=== PATIENT | female | born 1960 | race Caucasian/White ===

== ENCOUNTER 2017-01-25 18:54 | Emergency (ER) | payer BC ==
[2017-01-25] MEDS ORDERED: Morphine INJ* 4 MG/ML 1 ML SYRINGE IV ONE (19:40)
[2017-01-25] MEDS ORDERED: Ondansetron INJ* 2 MG/ML VIAL IV ONE (19:40)
[2017-01-25] MEDS ORDERED: NS 0.9% 1000 ML* 1,000 ML IV ONE (19:40)
--- NOTE | 2017-01-25 20:15 | RAD ---
INDICATION: Right ankle pain COMPARISON: None TECHNIQUE: AP, lateral, and oblique views were obtained. FINDINGS: The bony structures, joint spaces, and soft tissues are normal for age. IMPRESSION: NEGATIVE EXAMINATION.
--- NOTE | 2017-01-25 20:16 | RAD ---
INDICATION: Right shoulder injury COMPARISON: None TECHNIQUE: Routine frontal and Y views were obtained. FINDINGS: There is a comminuted fracture of the proximal humeral head and neck with multiple mildly displaced fracture fragments. There is no dislocation. The AC joint is intact. No rib fracture is seen. Visualized right lung is clear. IMPRESSION: COMMINUTED FRACTURE OF THE PROXIMAL HUMERAL HEAD AND NECK
[2017-01-25] MEDS ORDERED: traMADol TAB* 50 MG PO ONE ×2 (20:42→21:38)
[2017-01-25] MEDS ORDERED: traMADol TAB* 50 MG ONE (21:26)
[2017-01-26 05:13] VITALS: BP 168/84
--- NOTE | 2017-01-26 21:18 | ED ---
Julien Ferrer Billy, scribed for Eduardo Jenkins MD on 01/25/17 at 1939 . Upper Extremity Pain - HPI Summary HPI Summary: Patient is a 56 year-old female coming to [facility] for evaluation of right shoulder pain after a simple mechanical fall at 1530 today. She says she missed a step as she was exiting a restaurant in [place] and fell on her outstretched hands. There is pain with any attempted movement of the right shoulder, but she has limited ROM. She also complains of right ankle pain and a left knee abrasion. She denies any head trauma or LOC. Denies any numbness or tingling. - History of Current Complaint Chief Complaint: EDExtremityUpper Stated Complaint: FALL-SHOULDER/ANKLE INJURIES Time Seen by Provider: 01/25/17 19:21 Hx Obtained From: Patient Mechanism Of Injury: Fall From A Standing Position Onset/Duration: Started Hours Ago Timing: Constant Severity Initially: Moderate Severity Currently: Moderate Pain Location: Shoulder Aggravating Factor(s): Movement Alleviating Factor(s): Nothing Associated Signs & Symptoms: Positive: Negative PMH/Surg Hx/FS Hx/Imm Hx Endocrine/Hematology History: Denies: Hx Diabetes Respiratory History: Reports: Hx Asthma Infectious Disease History: Denies: Traveled Outside the [place] in Last 30 Days - Family History Known Family History: Negative: Blood Disorder - Social History Alcohol Use: Occasionally Hx Substance Use: No Substance Use Type: Reports: None Hx Tobacco Use: No Smoking Status (MU): Never Smoked Tobacco Review of Systems Negative: Fever, Chills Negative: Erythema Negative: Sore Throat Negative: Chest Pain Negative: Shortness Of Breath, Cough Negative: Abdominal Pain, Vomiting, Nausea Positive: Arthralgia - right shoulder, right ankle Positive: Other - abrasion left knee. 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 No stridor; No JVD; No step off; No posterior cervical spine tenderness Cardio: Rhythm regular, rate normal Heart sounds normal; Intact distal pulses; The pedal pulses are 2+ and symmetric. Radial pulses are 2+ and symmetric. Pulmonary/Chest wall: Effort normal; Breath sounds normal; Equal chest rise; No flail segment; No rib tenderness; No sternal tenderness Abd: Soft, Appearance normal. No distension; No tenderness; No palpable pulsatile mass; No Cullens sign; No Ruiz-Turners sign Musculoskeletal: Full ROM and no tenderness at hips, ankles, shoulders, elbows and knees; No joint swelling; No vertebral body tenderness; No paraspinal tenderness; No step off or deformity of the spine; Pelvis is stable to lateral compression and rock Neuro: Alert, Oriented x3, Strength 5/5 all extremities. : No blood at urethral meatus Psych: Mood and affect Normal Triage Information Reviewed: Yes Vital Signs On Initial Exam: Initial Vitals Temp Pulse Resp BP Pulse Ox 97.7 F 70 17 140/88 100 01/25/17 18:57 01/25/17 18:57 01/25/17 18:57 01/25/17 18:57 01/25/17 18:57 Vital Signs Reviewed: Yes Diagnostics - Vital Signs Vital Signs Temp Pulse Resp BP Pulse Ox 01/25/17 18:57 97.7 F 70 17 140/88 100 - Laboratory Lab Statement: Any lab studies that have been ordered have been reviewed, and results considered in the medical decision making process. - Radiology Shoulder x-ray Radiology Interpretation Completed By: Radiologist - COMMINUTED FRACTURE OF THE PROXIMAL HUMERAL HEAD AND NECK Ankle x-ray Xray Interpretation: No Acute Changes Radiology Interpretation Completed By: Radiologist Re-Evaluation - Re-Evaluation First Eval Re-Evaluation Time: 20:28 Comment: Imaging discussed. Patient developed symptoms of ulnar nerve compression, developing tingling and numbness to the posterior aspect of the right arm extending to the pinky finger Course/Dx - Course Assessment/Plan: This is a 56 year-old female coming to [facility] for evaluation of right shoulder and ankle pain after a fall earlier today. X-ray of the shoulder shows a comminuted fracture of the proximal humeral head and neck. X-ray of the ankle shows no acute findings. The patient was given morphine, zofran, and IV fluids in the ED. Upon re-evaluation, the patient actually developed symptoms of ulnar nerve compression, developing tingling and numbness to the posterior aspect of the right arm extending to the pinky finger. She will not be able to tolerate crutches or walker for the ankle injury due to the humeral fracture, so she will utilize a wheelchair for a few days until the ankle clears. She will be discharged home to follow up with orthopedics. - Diagnoses Provider Diagnoses: Ankle pain, humeral head and neck fracture, Paresthesia - Physician Notifications Discussed Care Of Patient With: Dr. Alfaro (orthopedics) @ 2049: as long as there is no dislocation, there is no need for emergent manipulation, will follow up tomorrow morning in the office. Discharge - Discharge Plan Condition: Stable Disposition: HOME Patient Education Materials: Arm Fracture in Adults (ED) Referrals: Mesha Simmons MD [Primary Care Provider] - Augusto Alfaro MD [Medical Doctor] - Additional Instructions: DO NOT BEAR WEIGHT ON YOUR RIGHT ANKLE UNTIL CLEARED TO DO SO. FOLLOW UP WITH DR. ALFARO (ORTHOPEDICS) TOMORROW MORNING. The documentation as recorded by the Julien evans Billy accurately reflects the service I personally performed and the decisions made by , Eduardo Jenkins MD.
== END 2017-01-25 21:40 | disposition home or self-care (01) ==
LOC: ED 18:54
DX: S42.291A Other displaced fracture of upper end of right humerus, initial encounter for closed fracture (principal); W10.9XXA Fall (on) (from) unspecified stairs and steps, initial encounter; Y92.511 Restaurant or cafe as the place of occurrence of the external cause; M25.571 Pain in right ankle and joints of right foot; R20.9 Unspecified disturbances of skin sensation
CPT/HCPCS: 99283; A9270-GY; J2270; J2405

== ENCOUNTER 2017-12-19 08:05 | Emergency (ER) | payer BC ==
[2017-12-19 08:55] VITALS: BP 171/103
[2017-12-19] MEDS ORDERED: Ibuprofen TAB* 600 MG PO ONE (09:40)
--- NOTE | 2017-12-19 09:47 | UC ---
Elbow Pain - HPI Summary HPI Summary: Fall last night indoors directly onto R elbow. Immediate pain, unable to extend elbow, visible swelling in joint. Had R proximal humerus fx about a year ago from a fall, saw Dr. Baeza. Works in office work, R hand dominant. - History of Current Complaint Chief Complaint: UCUpperExtremity Stated Complaint: ELBOW PAIN Time Seen by Provider: 12/19/17 09:29 Hx Obtained From: Patient ?: No Onset/Duration: Hours, Traumatic Severity Initially: Moderate Severity Currently: Moderate Pain Intensity: 8 Location Of Pain: Is Discrete @ Character: Dull, Aching, Stiffness Aggravating Factor(s): Movement Alleviating Factor(s): Rest, Immobilization, OTC Meds Associated Signs And Symptoms: Positive: Swelling - Allergies/Home Medications Allergies/Adverse Reactions: Allergies Allergy/AdvReac Type Severity Reaction Status Date / Time cefprozil [From Cefzil] Allergy Intermediate Hives Verified 12/19/17 08:46 Home Medications: Home Medications Budesonide [Entocort EC] 3 mg PO DAILY 12/19/17 [History Confirmed 12/19/17] Lisinopril 10 mg PO DAILY 12/19/17 [History Confirmed 12/19/17] PMH/Surg Hx/FS Hx/Imm Hx Cardiovascular History: Hypertension - Surgical History Surgical History: Yes Surgery Procedure, Year, and Place: oral surgery. right wrist surgery - Family History Known Family History: Positive: Hypertension Negative: Blood Disorder - Social History Occupation: Employed Full-time Alcohol Use: Occasionally Substance Use Type: None Smoking Status (MU): Never Smoked Tobacco Review of Systems Constitutional: Negative Skin: Negative Eyes: Negative ENT: Negative Respiratory: Negative Cardiovascular: Negative Gastrointestinal: Negative Genitourinary: Negative Motor: Negative Neurovascular: Negative Musculoskeletal: Arthralgia, Decreased ROM Neurological: Negative Psychological: Negative Is Patient Immunocompromised?: No All Other Systems Reviewed And Are Negative: Yes Physical Exam Triage Information Reviewed: Yes Appearance: Well-Appearing, Well-Nourished, Pain Distress - with R arm movement Vital Signs: Initial Vital Signs Temp 99.2 F 12/19/17 08:48 Pulse 81 12/19/17 08:48 Resp 16 12/19/17 08:48 BP 171/103 12/19/17 08:48 Pulse Ox 100 12/19/17 08:48 Vital Signs Reviewed: Yes Eye Exam: Normal Eyes: Positive: Conjunctiva Clear ENT Exam: Normal ENT: Positive: Normal ENT inspection, Hearing grossly normal Dental Exam: Normal Neck exam: Normal Neck: Positive: Supple, Nontender Respiratory Exam: Normal Respiratory: Positive: Chest non-tender, Lungs clear, Normal breath sounds, No respiratory distress, No accessory muscle use Cardiovascular Exam: Normal Cardiovascular: Positive: RRR, No Murmur Musculoskeletal: Positive: ROM Limited @ - R elbow in fixed position, painful to extend. Visible joint effusion Neurological Exam: Normal Neurological: Positive: Alert Psychological Exam: Normal Skin Exam: Normal Skin: Positive: rashes Diagnostics - Radiology No standard instances Xray Interpretation: Positive (See Comments) - Lateral r condylar fracture Radiology Interpretation Completed By: Radiologist Elbow Pain Course/Dx - Differential Dx/Diagnosis Provider Diagnoses: R elbow fracture lateral condyle, closed, mildly displaced. Elevated blood pressure due to pain Discharge - Discharge Plan Condition: Stable Disposition: HOME Patient Education Materials: Elbow Fracture (ED) Referrals: Mesha Simmons MD [Primary Care Provider] - Ray Baeza MD [Medical Doctor] - 4 Days Additional Instructions: Keep the arm rested and in a sling all the time until you see the orthopedist. Please discuss your fractures with Dr. Simmons at your next physical, as you may benefit from treatment for osteoporosis.
--- NOTE | 2017-12-19 10:06 | RAD ---
INDICATION: Right elbow injury COMPARISON: None TECHNIQUE: AP, lateral, and oblique views were obtained. FINDINGS: There is a mildly distracted fracture from the lateral upper condyle. There are no other fractures. The elbow articulates normally. There is a large joint effusion with displacement of anterior posterior fat pads. IMPRESSION: LATERAL EPICONDYLE FRACTURE WITH HEMARTHROSIS
== END 2017-12-19 10:45 | disposition home or self-care (01) ==
LOC: UCEAST 08:05
DX: S42.431A Displaced fracture (avulsion) of lateral epicondyle of right humerus, initial encounter for closed fracture (principal); W19.XXXA Unspecified fall, initial encounter; Y93.9 Activity, unspecified; Y92.9 Unspecified place or not applicable; I10 Essential (primary) hypertension; Z88.1 Allergy status to other antibiotic agents
CPT/HCPCS: 99213; A9270-GY; G0463

== ENCOUNTER 2017-12-27 10:42 | Day surgery (SDC) | payer BC ==
--- NOTE | 2017-12-26 13:56 | HP ---
PREOPERATIVE HISTORY AND PHYSICAL: DATE OF SURGERY/ADMISSION: 12/27/17 [facility] ATTENDING SURGEON: Danielle Alejandro MD * (DICTATED BY LUIS LOZANO) PROCEDURE: Open reduction internal fixation, right distal humerus. CHIEF COMPLAINT: Right elbow pain after fall. HISTORY OF PRESENT ILLNESS: This is a 57-year-old female who sustained injury to her right elbow on 12/18/17 when she tripped over her dog in the dark in the middle of the night. She was initially seen at [facility] and x-rays showed a comminuted intraarticular fracture of the distal humerus with a mild amount of displacement. Subsequent CT scan showed a markedly comminuted and displaced fracture of the capitellum and a small portion of the trochlea. The patient denies any associated numbness or tingling. After evaluation by Dr. Alejandro and review of imaging studies, the patient has consented to proceed with surgical intervention at this time in the form of an open reduction internal fixation of the right distal humerus. PAST MEDICAL HISTORY: 1. Hypertension. 2. History of asthma. 3. Microscopic colitis. 4. Celiac disease. 5. Allergies to DUST, POLLEN and other ENVIRONMENTAL AGENTS. PAST SURGICAL HISTORY: 1. [place] teeth extraction. 2. Wrist surgery as a child. CURRENT MEDICATIONS: 1. Budesonide 3 mg 3 times daily. 2. Lisinopril 10 mg daily. 3. Naproxen 500 mg b.i.d. p.r.n. pain. 4. Vitamin D3 daily. ALLERGIES: CEFZIL causes hives. FAMILY MEDICAL HISTORY: Diabetes, heart disease, hypertension, cancer and arthritis. 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 She denies tobacco use and illicit drug use. She does drink alcohol on regular occasion, approximately 2 glasses of wine per night. REVIEW OF SYSTEMS: General: Negative for fevers, chills, or night sweats. No known anesthesia problems. HEENT: Negative for headache, lightheadedness, or syncopal episodes. Integumentary: Negative for abrasions, lesions, or open wounds. Cardiothoracic: Negative for hypertension, chest pain, palpitations, or edema. Pulmonary: Negative for shortness of breath with exertion, chronic cough, COPD. GI: Negative for nausea, vomiting, diarrhea, constipation or GERD. : Negative for nocturia, urinary frequency, urgency, history of UTIs, or kidney problems. Musculoskeletal: Positive for current complaint. Neurological: Negative for paresthesias, numbness, history of seizure, stroke, or epilepsy. Endocrine: Negative for diabetes and thyroid issues. Hematologic : Negative for easy bruising, anemia, excessive bleeding, or history of DVT. Infectious Disease: Negative for history of MRSA, hepatitis C, HIV. PHYSICAL EXAMINATION GENERAL: Well-developed, well-nourished 57-year-old female in no acute distress. VITAL SIGNS: Height 5 feet 9 inches, weight 160 pounds. Pulse rate 65, blood pressure 134/82. HEENT: Normocephalic, atraumatic. Pupils are equal, round, and reactive to light and accommodation. Extraocular movements are intact. NECK: Supple. No palpable lymph nodes. Throat is clear. PULMONARY: Lungs are clear to auscultation bilaterally. No wheezes, rales, or rhonchi. CARDIOVASCULAR: Regular rate and rhythm. S1 and S2. No murmurs, rubs, or gallops. No edema. ABDOMEN: Positive bowel sounds. Soft, nontender. NEUROLOGIC: Alert and oriented x3. Cranial nerves II through XII are intact. Sensation is intact to light touch. PERIPHERAL VASCULAR: 2+ radial and ulnar pulses. MUSCULOSKELETAL: On exam of her right elbow, there is significant swelling around the elbow. She has mildly limited range of motion at the elbow in flexion and extension, but she has full pronation and supination. Neurovascular function is intact. SKIN: Intact. IMAGING STUDIES: X-rays: AP, lateral and oblique of the right elbow show a comminuted intraarticular fracture of the distal humerus and a CT scan shows a markedly comminuted and displaced fracture of the capitellum and a small portion of the trochlea. IMPRESSION: Right elbow capitellum and trochlea fracture. PLAN: The patient is scheduled to undergo an open reduction internal fixation of the right distal humerus with Dr. Alejandro on 12/27/17. She will return to the office 10 to 14 days postop for followup and suture removal. A prescription for [place] was e-scribed to the patient's pharmacy for postoperative pain management. LUIS LOZANO [id number]/[facility] #: [id number] [facility] SERVICES[facility]
[~2017-12-27 10:42] MED LIST: Buffered Lidocaine 0.9% SYRIN* 5 ML/SYR SYRINGE INTRADERM ONE; DiMENhydriNATE IV* 50 MG/ML VIAL IV PUSH PRN; Famotidine IV* 10 MG/ML 2 ML (20 mg) IV ONE; Morphine INJ* 2 MG/ML 1 ML CARPUJECT IV PRN; Naloxone* 0.4 MG/ML 1 ML VIAL IV PRN; PROCHLORPERAZINE INJ 5 MG/ML 2 ML VIAL IV PRN; Scopolamine 1.5 mg* PATCH TRANSDERM PRN; fentaNYL* 50 MCG/ML 2 ML VIAL (100 MCG VIAL) IV PRN; oxyCODONE/Acetamin 5/325 MG* TAB PO PRN
[2017-12-27] MEDS ORDERED: ceFAZolin 2 GM in 100 MLS NS (*) BAG IVPB ONE (10:55)
[2017-12-27] MEDS ORDERED: Famotidine IV* 10 MG/ML 2 ML (20 mg) ONE (10:55)
[2017-12-27] MEDS ORDERED: fentaNYL* 50 MCG/ML 2 ML VIAL (100 MCG VIAL) ONE ×2 (11:48→13:58)
[2017-12-27] MEDS ORDERED: Midazolam* 1 MG/ML 5 ML VIAL (5 MG) ONE (11:48)
[2017-12-27] MEDS ORDERED: Bupivacaine 0.25% SDV* 30 ML ONE (12:12)
[2017-12-27] MEDS ORDERED: Clindamycin 900 MG IVPREMIX(* 900 MG/50 ML SDV IV ONE (12:22)
[2017-12-27] MEDS ORDERED: Dexamethasone IV* 4 MG/ML 1 ML (4 MG) ONE (13:06)
[2017-12-27] MEDS ORDERED: Lidocaine 2% PF * 5 ML VIAL ONE (13:06)
[2017-12-27] MEDS ORDERED: Propofol* 10 MG/ML 20 ML BTL IV PUSH ONE (13:06)
[2017-12-27] MEDS ORDERED: Ketorolac INJ* 30 MG/ML 1 ML VIAL ONE (13:06)
[2017-12-27] MEDS ORDERED: Ondansetron INJ* 2 MG/ML VIAL ONE (13:06)
[2017-12-27 15:01] VITALS: BP 145/87
--- NOTE | 2017-12-28 12:29 | OP ---
DATE OF OPERATION: 12/27/17 [facility] DATE OF : 56 SURGEON: Dr. Alejandro. FORTUNE COOKIE MAKER: LUIS Kee ANESTHESIA: General plus block. PRE-OP DIAGNOSIS: Distal humerus fracture on the right. POST-OP DIAGNOSIS: Distal humerus fracture on the right. OPERATIVE PROCEDURE: Open reduction and internal fixation of the right distal humerus. ESTIMATED BLOOD LOSS: Less than 10 mL. INDICATION FOR PROCEDURE: Penny is a 57-year-old woman who tripped over her dog in the night and injured her right elbow. On CT scan, she has a markedly displaced and comminuted fracture of the distal humerus. She presents for ORIF of the right distal humerus. DESCRIPTION OF PROCEDURE: The patient was brought to the operating room, was given a block anesthetic and a general anesthetic. She was placed in a supine position on the operating table with a tourniquet around her right upper arm. Skin of her right upper extremity was prepped and draped in the usual sterile fashion. The upper extremity was exsanguinated and the tourniquet elevated to 250 mmHg. A lateral longitudinal incision was made at center of the lateral epicondyle and we dissected sharply through the subcutaneous tissue and in the interval between the anconeus and ECRB a longitudinal incision was made. The elbow joint capsule was then incised and the hematoma was suctioned. The fracture fragments which had been split and impacted were teased apart and reduced and the radial head was brought down into reduction by traction. There was a small, very thin chondral fragment posterior and this was removed. There was a small lateral fragment as well and then a large anterior fragment, which was the majority of the capitellum. There was also an impacted trochlear fragment and it was decided to just leave this in place as it was not hindering the range of motion at all. With the capitellum fragment reduced, I was able to gain full flexion and extension and rotation of the forearm. The capitellar fragment was secured with 3 Acutrak screws through the articular surface and an additional small fragment lag screw on the anterior cortical portion of the fragment. The thin lateral fragment was secured with a single small fragment screw using a washer. The position of all of the hardware and fracture fragments was checked on the C-arm in the AP and lateral views and found to be very satisfactory. There was no motion at the fracture site with range of motion of the elbow. The wound was copiously irrigated with saline. The elbow joint capsule was closed with 0 Vicryl suture, the fascia closed with 0 Vicryl, subcutaneous tissue closed with 2-0 Vicryl, and the skin with skin mendoza. The wound was dressed with Xeroform, 4x4, Webril, and a posterior splint. The patient tolerated the procedure well and was brought to the recovery room in good condition. [id number]/[facility] #: [id number] JOE
--- NOTE | 2017-12-28 13:00 | RAD ---
INDICATION: Traumatic fracture right elbow operative reduction and internal fixation. COMPARISON: Comparison is made with prior x-ray study of the right upper lobe from December 19, 2017. TECHNIQUE: 1 minute and 22 seconds of intermittent fluoroscopic guidance were provided and 3 spot films of the right elbow were obtained in the operating room. FINDINGS: The films demonstrate placement of several surgical screws and struts spanning the fracture of the lateral epicondyle of the distal humerus. IMPRESSION: INTRAOPERATIVE CONTROL FILMS. CPT II Codes: 6045F
--- NOTE | 2017-12-29 12:01 | OP ---
CC: Dr. Alejandro OPERATIVE NOTE: DATE OF OPERATION: 12/27/17 DATE OF : 56 SURGEON: Danielle Alejandro MD SOAKING ROOM OPERATOR: LUIS Kee ANESTHESIA: General and block. PRE-OP DIAGNOSIS: Right distal humerus fracture. POST-OP DIAGNOSIS: Right distal humerus fracture. OPERATIVE PROCEDURE: Open reduction internal fixation of right distal humerus fracture. ESTIMATED BLOOD LOSS: Zero. TOURNIQUET TIME: About an hour and 10 minutes. INDICATION FOR PROCEDURE: Penny is a 57-year-old woman, who tripped over her dog and landed on her o utstretched right arm. She suffered a fracture of her distal humerus with a markedly displaced capit ellar fracture. She presents for ORIF. CT scan shows a small anterior trochlear fragment, which was impacted and a displaced anterior capitellum fragment with a second posterior capitellum fragment. The radial head is impacted proximally between the fracture fragments. DESCRIPTION OF PROCEDURE: The patient was brought to the operating room, was given a block and a gen eral anesthetic and placed in the supine position on the operating table with the tourniquet around h er right upper arm. Skin of her right upper extremity was prepped and draped in the usual sterile fa shion. The upper extremity was exsanguinated and the tourniquet elevated to 250 mmHg. A lateral iqra gitudinal incision was made centered at the lateral epicondyle. We dissected sharply through the sub cutaneous tissue down to the extensor origin and interval between the anconeus and the ECRB was devel oped. Then, I made a longitudinal incision in the joint capsule. The radial head was disengaged fro m the fracture fragments by traction. There was a posterior chondral fragment, which had minimal bon e and thus was removed and large anterior fragment was reduced back to the shaft of the distal humeru s. The impacted trochlear fragment was left in place. K-wires from the standard Acutrak set were dr [place] through the capitellar fragment into the distal humerus in 3 different planes and 3 Acutrak scre ws were placed to secure that fragment, they were countersunk below the subchondral bone. Two additi onal 2.7 mm screws were used to secure the proximal portion of the capitellar fragment, which was not articular to the shaft and a second one was used to secure a small lateral fragment. The position o f the hardware and fracture fragments and radiocapitellar joint were checked on the C-arm in the AP a nd lateral views and found to be satisfactory. There was very good range of motion of flexion/extens ion, pronation/supination, full motion essentially in all directions. The joint was copiously irriga jessi with saline. The joint capsule was closed with 0 Polysorb suture, the fascia closed with 0 Polys orb suture and the subcutaneous tissue closed with 2-0 Polysorb. The skin was closed with mendoza an d then the wound dressed with Xeroform, 4x4, Webril, and a posterior splint. The patient tolerated t he procedure well and was brought to the recovery room in good condition. [id number]/[facility] #: [id number]
[2017-12-30] MEDS ORDERED: Scopolamine PATCH Remove* 1 NOTE MISC PATCH OFF ONE (06:07)
== END 2017-12-27 14:58 | disposition home or self-care (01) ==
LOC: OREAST 10:42
PROVIDERS: ATTEND Orthopaedic Surgery
DX: S42.421A Displaced comminuted supracondylar fracture without intercondylar fracture of right humerus, initial encounter for closed fracture (principal); I10 Essential (primary) hypertension; J30.1 Allergic rhinitis due to pollen; Z88.8 Allergy status to other drugs, medicaments and biological substances; W18.31XA Fall on same level due to stepping on an object, initial encounter
CPT/HCPCS: 76001; C1713; C1769; C1776; J1100; J1885; J2250; J2405; J2704; J3010